=== PATIENT | male | born 1960 | race Hispanic/Latino ===

== ENCOUNTER 2022-11-16 23:57 | Inpatient (IN) | payer OTHER ==
[~2022-11-16] VITALS: Ht 175.3 cm; Wt 88.5 kg
[2022-11-17] VITALS (11 sets, daily range): BP systolic 111–149; BP diastolic 58–94; PULSE 57–154; RESP 18–20; TEMP 100.7; O2SAT 99–100
[2022-11-17] MEDS ORDERED: ACETAMINOPHEN 500 MG TABLET ONE (00:18)
[2022-11-17] MEDS ORDERED: AMIODARONE 150MG VIAL ONE (00:28)
[2022-11-17] MEDS ORDERED: DILTIAZEM 125 MG/25 ML INJ 125 MG in 0.9%NACL 100ML 100 ML IV SCH (00:30)
[2022-11-17] MEDS ORDERED: ACETAMINOPHEN 500 MG TABLET PO ONE (00:30)
[2022-11-17] MEDS ORDERED: AMIODARONE 150MG VIAL IV ONE (00:30)
[2022-11-17] MEDS ORDERED: AMIODARONE 150MG VIAL 150 MG in DEXTROSE 5%-WATER 50 ML IV ONE (00:30)
[2022-11-17] MEDS ORDERED: 0.9%NACL 1000ML 2,121 ML IV ONE (00:30)
[2022-11-17] MEDS ORDERED: DILTIAZEM 25MG INJ IVP ONE ×2 (00:30)
[2022-11-17 00:31] LABS: BASOPHILS # (AUTO) 0.02 K/uL (0.00-0.20); BASOPHILS % (AUTO) 0.3 % (0.0-5.0); EOSINOPHILS # (AUTO) 0.04 K/uL (0.00-0.70); EOSINOPHILS % (AUTO) 0.5 % (0.0-8.0); HEMATOCRIT 47.3 % (42-54); IMMATURE GRANULOCYTE ABSOLUTE 0.03 K/uL (0-1); LYMPHOCYTES # (AUTO) 0.6 K/uL (1.0-4.8); LYMPHOCYTES % (AUTO) 7.3 % (21.0-51.0); MEAN CORPUSCULAR HEMOGLOBIN 30.4 pg (27.0-33.0); MEAN CORPUSCULAR HGB CONC 34.9 g/dL (32.0-36.0); MEAN CORPUSCULAR VOLUME 87.1 fL (79-99); MONOCYTES # (AUTO) 0.6 K/uL (0.1-1.0); MONOCYTES % (AUTO) 8.1 % (3.0-13.0); NEUTROPHILS # (AUTO) 6.6 K/uL (1.8-7.7); NEUTROPHILS % (AUTO) 83.4 % (40.0-77.0); PLATELET COUNT (AUTO) 142 K/uL (130-400); RED BLOOD CELL COUNT(AUTO) 5.43 MIL/uL (4.50-6.20); RED CELL DISTRIBUTION WIDTH 12.9 % (11.0-15.5); WHITE BLOOD COUNT (AUTO) 7.9 K/uL (4.8-10.8)
[2022-11-17 00:35] LABS: CREATININE 1.1 mg/dL (0.5-1.5); POTASSIUM 4.1 mmol/L (3.5-5.1)
[2022-11-17 00:35] LABS: APPEARANCE,URINE CLEAR (CLEAR); BILIRUBIN,URINE NEGATIVE (NEGATIVE); COLOR,URINE YELLOW (YELLOW); GLUCOSE, URINE (UA) NEGATIVE (NEGATIVE); KETONES,URINE NEGATIVE (NEGATIVE); LEUKOCYTE ESTERASE ,URINE NEGATIVE Leu/uL (NEGATIVE); NITRATE,URINE NEGATIVE (NEGATIVE); OCCULT BLOOD,URINE NEGATIVE (NEGATIVE); PH,URINE 5.5 (5.0-8.0); PROTEIN,URINE NEGATIVE (NEGATIVE); UROBILINOGEN,URINE 0.2 mg/dL (0.2-1.0)
[2022-11-17 00:41] LABS: SARS-CoV-2, RNA, NAAT POSITIVE SARS CoV-2 (NEGATIVE)
[2022-11-17 00:45] LABS: ALBUMIN 3.9 g/dL (3.5-5.0); BILIRUBIN,TOTAL 0.6 mg/dL (0.2-1.0); TOTAL PROTEIN, SERUM 7.7 g/dL (6.0-8.3)
[2022-11-17 00:49] LABS: INFLUENZA TYPE A Negative For Type A (NEGATIVE); INFLUENZA TYPE B Negative For Type B (NEGATIVE)
[2022-11-17 00:52] LABS: WBC MORPHOLOGY CONSISTENT W/DIFF
[2022-11-17 00:58] LABS: ADD UA MICROSCOPIC NO
[2022-11-17] MEDS ORDERED: METOPROLOL SUCCINATE 25 MG TAB.SR.24H PO ONE (02:00)
[2022-11-17] MEDS ORDERED: ACETAMINOPHEN 325 MG TAB PO PRN ×2 (02:00)
[2022-11-17] MEDS ORDERED: ONDANSETRON 4MG INJ IV PRN (02:00)
[2022-11-17] MEDS ORDERED: GUAIFENESIN-DM 200/20 MG 10 ML PO PRN (03:30)
[2022-11-17 03:45] LABS: AMPHET/METH SCREEN,URINE NEGATIVE (NEGATIVE); BARBITURATE SCREEN, URINE NEGATIVE (NEGATIVE); BENZODIAZEPINES SCREEN,URINE NEGATIVE (NEGATIVE); CANNABINOID SCREEN,URINE POSITIVE (NEGATIVE); COCAINE SCREEN,URINE NEGATIVE (NEGATIVE); OPIATE SCREEN,URINE NEGATIVE (NEGATIVE); PHENCYCLIDINE SCREEN,URINE NEGATIVE (NEGATIVE)
[2022-11-17 04:14] LABS: HEMATOCRIT 39.6 % (42-54); MEAN CORPUSCULAR HEMOGLOBIN 30.6 pg (27.0-33.0); MEAN CORPUSCULAR HGB CONC 34.8 g/dL (32.0-36.0); MEAN CORPUSCULAR VOLUME 87.8 fL (79-99); RED BLOOD CELL COUNT(AUTO) 4.51 MIL/uL (4.50-6.20); RED CELL DISTRIBUTION WIDTH 12.9 % (11.0-15.5); WHITE BLOOD COUNT (AUTO) 7.6 K/uL (4.8-10.8)
[2022-11-17 04:42] LABS: ALBUMIN 3.2 g/dL (3.5-5.0); BILIRUBIN,TOTAL 0.6 mg/dL (0.2-1.0); CREATININE 1.1 mg/dL (0.5-1.5); CRP QUANTITATIVE 13.7 mg/L (0.00-9.0); MAGNESIUM 1.4 mg/dL (1.80-2.40); POTASSIUM 4.1 mmol/L (3.5-5.1); THYROID STIMULATING HORMONE 0.87 uIU/mL (0.36-3.74); TOTAL PROTEIN, SERUM 6.1 g/dL (6.0-8.3)
[2022-11-17] MEDS: CEFTRIAXONE 1G VIAL IVPB SCH (04:48)
[2022-11-17] MEDS: AZITHROMYCIN 500MG+NS 250ML IVPB SCH (04:48)
[2022-11-17] MEDS: FAMOTIDINE 20MG TAB PO SCH ×2 (09:13→19:38)
[2022-11-17] MEDS: ENOXAPARIN SODIUM 40 MG/0.4 ML SYRINGE SQ SCH (09:13)
[2022-11-17] MEDS ORDERED: MAGNESIUM 2GM PREMIX 50ML 50 ML IV PRN (10:00)
[2022-11-17] MEDS ORDERED: MAGNESIUM 2GM PREMIX 50ML 50 ML IV SCH (10:00)
[2022-11-17] MEDS: METOPROLOL TARTRATE 25 MG TAB PO SCH ×2 (10:15→19:38)
[2022-11-17] MEDS ORDERED: ASPIRIN 81 MG EC TAB PO ONE (12:00)
[2022-11-18] MEDS: CEFTRIAXONE 1G VIAL IVPB SCH (03:08)
[2022-11-18] MEDS: AZITHROMYCIN 500MG+NS 250ML IVPB SCH (03:08)
[2022-11-18 03:59] VITALS: BP 142/76; PULSE 59; RESP 18
[2022-11-18 04:15] LABS: HEMATOCRIT 39.5 % (42-54); MEAN CORPUSCULAR HEMOGLOBIN 30.7 pg (27.0-33.0); MEAN CORPUSCULAR HGB CONC 33.9 g/dL (32.0-36.0); MEAN CORPUSCULAR VOLUME 90.4 fL (79-99); RED BLOOD CELL COUNT(AUTO) 4.37 MIL/uL (4.50-6.20); RED CELL DISTRIBUTION WIDTH 13.1 % (11.0-15.5); WHITE BLOOD COUNT (AUTO) 5.3 K/uL (4.8-10.8)
[2022-11-18 04:31] LABS: ALBUMIN 3.1 g/dL (3.5-5.0); BILIRUBIN,TOTAL 0.7 mg/dL (0.2-1.0); MAGNESIUM 2.2 mg/dL (1.80-2.40); POTASSIUM 4.3 mmol/L (3.5-5.1); TOTAL PROTEIN, SERUM 6.3 g/dL (6.0-8.3)
[2022-11-18 07:17] VITALS: BP 145/86; PULSE 62; RESP 18
[2022-11-18 08:00] VITALS: O2SAT 100
[2022-11-18] MEDS ORDERED: METO25 PO (08:20)
[2022-11-18] MEDS ORDERED: AEC81 PO (08:20)
[2022-11-18] MEDS ORDERED: GUAI5SYR PO (08:20)
[2022-11-18] MEDS: METOPROLOL TARTRATE 25 MG TAB PO SCH (08:52)
[2022-11-18] MEDS: FAMOTIDINE 20MG TAB PO SCH (08:52)
[2022-11-18] MEDS: ENOXAPARIN SODIUM 40 MG/0.4 ML SYRINGE SQ SCH (08:52)
[2022-11-18] MEDS ORDERED: ASPIRIN 81 MG EC TAB PO SCH (09:00)
== END 2022-11-18 10:34 | disposition home or self-care (01) | DRG 308 ==
LOC: EDH 23:57 → EDHIP 11-17 01:33 → 2AH 11-17 02:23
PROVIDERS: ADMIT Hospitalist; ATTEND Hospitalist
DX: I48.19 Other persistent atrial fibrillation (principal); U07.1 COVID-19; I27.20 Pulmonary hypertension, unspecified; Z79.899 Other long term (current) drug therapy
CPT/HCPCS: 36415; 71045; 80053; 80305; 81003; 82550; 83605; 83735; 83874; 84145; 84443; 84484; 85025; 85027; 86140; 87040; 87635; 87804; 93005; 93306; 93356; C9803; G0378; J0282; J0456; J0696; J1650; J3475; J3490; J7060